=== PATIENT | male | born 1985 | race African-American/Black ===

== ENCOUNTER 2018-04-01 13:26 | Emergency (ER) | payer OTHER ==
[~2018-04-01] VITALS: Ht 185.4 cm; Wt 128.4 kg
[2018-04-01] MEDS ORDERED: IV NORMAL SALINE 1,000ML 1,000 ML IV SCH (13:30)
[2018-04-01] MEDS ORDERED: ASPIRIN 81 MG TAB.CHEW PO ONE (13:45)
--- NOTE | 2018-04-01 13:46 | PHYS DOC ---
Adult General Chief Complaint Chief Complaint: CHEST PAIN HPI HPI 32-year-old male presents with chest pain. He states that he started to get chest pain 2 days ago that started while he was sitting down playing a game. He took some kind of "pain pill" and fell asleep. (He does not know what the medication was.) The pain was resolved at that time. Around midnight last night , the patient woke up with similar pain and it has not gone away. It is sharp 5/ 10 in the central chest. He denies shortness of breath, nausea, vomiting, diaphoresis. He is never had pain like this before. Denies recent trauma or overuse. He does not have a history of GERD. Review of Systems Review of Systems Constitutional: Denies fever or chills [] Eyes: Denies change in visual acuity, redness, or eye pain [] HENT: Denies nasal congestion or sore throat [] Respiratory: Denies cough or shortness of breath [] Cardiovascular: No additional information not addressed in HPI [] GI: Denies abdominal pain, nausea, vomiting, bloody stools or diarrhea [] : Denies dysuria or hematuria [] Musculoskeletal: Denies back pain or joint pain [] Integument: Denies rash or skin lesions [] Neurologic: Denies headache, focal weakness or sensory changes [] Endocrine: Denies polyuria or polydipsia [] All other systems were reviewed and found to be within normal limits, except as documented in this note. Current Medications Current Medications Current Medications Medications (Trade) Dose Ordered Sig/Bharti Start Time Stop Time Status Last Admin Dose Admin Aspirin (Children'S Aspirin) 324 mg 1X ONCE 04/01/18 13:30 04/01/18 13:31 UNV Sodium Chloride 1,000 ml @ 100 mls/hr Q10H 04/01/18 13:30 04/01/18 23:29 UNV Allergies Allergies Allergies Coded Allergies Type Severity Reaction Last Updated Verified No Known Drug Allergies 04/01/18 No Physical Exam Physical Exam Constitutional: Well developed, well nourished, no acute distress, non-toxic appearance. [] HENT: Normocephalic, atraumatic, bilateral external ears normal, oropharynx moist, no oral exudates, nose normal. [] Eyes: PERRLA, EOMI, conjunctiva normal, no discharge. [] Neck: Normal range of motion, no tenderness, supple, no stridor. [] Cardiovascular:Heart rate regular rhythm, no murmur. Mild pain with palpation of central chest.[] Lungs & Thorax: Bilateral breath sounds clear to auscultation [] Abdomen: Bowel sounds normal, soft, no tenderness, no masses, no pulsatile masses. [] Skin: Warm, dry, no erythema, no rash. [] Back: No tenderness, no CVA tenderness. [] Extremities: No tenderness, no cyanosis, no clubbing, ROM intact, no edema. [] Neurologic: Alert and oriented X 3, normal motor function, normal sensory function, no focal deficits noted. [] Psychologic: Affect normal, judgement normal, mood normal. [] EKG EKG Normal sinus rhythm, rate 69, normal axis, no ST elevations or depressions.[] Radiology/Procedures Radiology/Procedures Exam: AP portable chest History: Chest pain. Comparison: None. Findings: The heart and mediastinal structures are within normal limits for size. Lungs are without infiltrate. No pleural effusion or pneumothorax is identified. Impression: 1. No acute cardiopulmonary process. Electronically signed by: Talha Arguelles MD (04/01/2018 2:10 PM) [id number][] Course & Med Decision Making Course & Med Decision Making Pertinent Labs and Imaging studies reviewed. (See chart for details) The patient's labs are unremarkable. His EKG is unremarkable. His chest x-ray is unremarkable. His troponin is negative. Since the patient's pain started 14 hours ago, I do not believe this is cardiac and negative troponin. I will try GI cocktail to see if this helps. This improved the patient's pain. I will discharge him with 14 days of Protonix and recommend he follow-up with his PCP. [] Dragon Disclaimer Dragon Disclaimer This electronic medical record was generated, in whole or in part, using a voice recognition dictation system. Departure Departure: Referrals: PCP,COURTNEY (PCP) Scripts Pantoprazole Sodium (PROTONIX) 40 Mg Tablet. 40 MG PO DAILY for 14 Days, #14 TAB Prov: CHARLES AMANDA DO 04/01/18 CHARLES AMANDA DO Apr 01, 2018 13:46
[2018-04-01 13:52] LABS: BASO % 1 % (0-3); EOS # 0.1 x10^3/uL (0.0-0.7); EOS % 2 % (0-3); HEMATOCRIT 44.3 % (39.0-53.0); HEMOGLOBIN 15.2 g/dL (13.0-17.5); LYMPH # 1.9 x10^3/uL (1.0-4.8); LYMPH % 32 % (24-48); MEAN CORPUSCULAR HEMOGLOBIN 31 pg (25-35); MEAN CORPUSCULAR HGB CONC 34 g/dL (31-37); MEAN CORPUSCULAR VOLUME 91 fL (79-100); MONO # 0.4 x10^3/uL (0.0-1.1); MONO % 6 % (0-9); NEUT # 3.4 x10^3uL (1.8-7.7); NEUT % 59 % (31-73); PLATELET COUNT 194 x10^3/uL (140-400); RED BLOOD COUNT 4.88 x10^6/uL (4.30-5.70); RED CELL DISTRIBUTION WIDTH 13.9 % (11.5-14.5); WHITE BLOOD COUNT 5.8 x10^3/uL (4.0-11.0)
[2018-04-01 14:01] LABS: CREATININE 1.1 mg/dL (0.7-1.3); GFR 93.3; POTASSIUM 3.6 mmol/L (3.5-5.1)
--- NOTE | 2018-04-01 14:14 | RAD ---
Exam: AP portable chest History: Chest pain. Comparison: None. Findings: The heart and mediastinal structures are within normal limits for size. Lungs are without infiltrate. No pleural effusion or pneumothorax is identified. Impression: 1. No acute cardiopulmonary process. Electronically signed by: Talha Arguelles MD (04/01/2018 2:10 PM) [place] [id number]
[2018-04-01] MEDS ORDERED: LIDO:MAALOX 1:1 20 ML SINGLE DOSE. PO ONE (14:30)
--- NOTE | 2018-04-01 14:53 | EKG ---
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
[2018-04-01] MEDS ORDERED: PANT40TA3 PO (15:04)
[2018-04-01 15:13] VITALS: BP 116/84
== END 2018-04-01 15:16 | disposition home or self-care (01) ==
LOC: ER 13:26
DX: R07.89 Other chest pain (principal)
CPT/HCPCS: 36415; 71045; 80048; 84484; 85025; 93005; 99285-25; J7030